=== PATIENT | male | born 1960 ===

== ENCOUNTER 2017-04-02 09:56 | Emergency (ER) | payer MEDICARE ==
[2017-04-02 10:04] VITALS: BP 150/82; PULSE 67; RESP 18; TEMP 97.8; O2SAT 98
--- NOTE | 2017-04-02 10:33 | C.PDOC ---
History Of Present Illness 56 year old male with a history of asthma and HIV presents to the ED with complaints of sore throat and cough for two days. Patient uses pump BID normally and denies aggravation of asthma symptoms. His viral load is undetected and CD4 is 850. Patient denies smoking, sick contacts, fever, runny nose, chest pain, shortness of breath, or associated symptoms. SORE THROAT, COUGH X 2 DAYS. NO FEVER, RUNNY NOSE. HO ASTHMA, USES PUMP BID NORMALLY BUT DENIES WORSE THAN USUAL ASTHMA. NO CP, SOB OTHER ASSOC SX. NO SMOKE , SICK CONTACTS VL UNDETECT CD4 850 EXAM +PHARYNGEAL ERYTHEMA NO EXUDATE, SWELL. MMM NO DROOL NO CERV NODES SUPPLE CTA B/L NO W/R/R NO RETRACTIONS Time Seen by Provider: 04/02/17 10:18 Chief Complaint (Nursing): Cough, Cold, Congestion History Per: Patient History/Exam Limitations: no limitations Onset/Duration Of Symptoms: Days (2 days ) Current Symptoms Are (Timing): Still Present Sick Contacts (Context): None Associated Symptoms: Sore Throat, Cough. denies: Fever, Chills, Nausea, Vomiting Recent travel outside of the [place]: No Past Medical History Reviewed: Historical Data, Nursing Documentation, Vital Signs Vital Signs: Last Vital Signs Temp 97.8 F 04/02/17 10:04 Pulse 67 04/02/17 10:04 Resp 18 04/02/17 10:04 BP 150/82 04/02/17 10:04 Pulse Ox 98 04/02/17 10:35 - Medical History PMH: Asthma, HIV Family History: States: Unknown Family Hx - Social History Hx Alcohol Use: Yes Hx Substance Use: No Review Of Systems Constitutional: Negative for: Fever, Chills ENT: Positive for: Other (sore throat ) Cardiovascular: Negative for: Chest Pain, Palpitations Respiratory: Positive for: Cough. Negative for: Shortness of Breath Gastrointestinal: Negative for: Nausea, Vomiting Physical Exam - Physical Exam Appears: Non-toxic, No Acute Distress Skin: Warm, Dry Head: Atraumatic Eye(s): bilateral: Normal Inspection Oral Mucosa: Moist Throat: Erythema (pharygeal erythema ), No Exudate, No Drooling, Other (No swelling ) Neck: Supple, Other (No cervical nodes ) Respiratory: Normal Breath Sounds (clear to auscultation bilaterally ), No Accessory Muscle Use, No Rales, No Rhonchi, No Wheezing ED Course And Treatment O2 Sat by Pulse Oximetry: 98 (room air ) Pulse Ox Interpretation: Normal - Radiology CXR: Interpreted by Me CXR Interpretation: Yes: No Acute Disease Progress Note: CXR was ordered. Disposition Counseled Patient/Family Regarding: Studies Performed, Diagnosis, Need For Followup, Rx Given - Disposition Referrals: [facility] [Outside] [facility] [Outside] Disposition: HOME/ ROUTINE Disposition Time: 10:32 Condition: GOOD Prescriptions: Azithromycin 250 mg PO DAILY #6 tab Benzonatate [Tessalon Perles] 200 mg PO TID PRN #15 sgl PRN Reason: Cough Ibuprofen [Motrin] 600 mg PO Q6 #30 tab predniSONE [Prednisone] 60 mg PO DAILY #15 tab Instructions: Acute Bronchitis (ED) Forms: [employer] (Bulgarian) - Clinical Impression Clinical Impression: Bronchitis, Upper respiratory infection - Scribe Statement The provider has reviewed the documentation as recorded by the Scribe Mari Martinez All medical record entries made by the Scribe were at my direction and personally dictated by me. I have reviewed the chart and agree that the record accurately reflects my personal performance of the history, physical exam, medical decision making, and the department course for this patient. I have also personally directed, reviewed, and agree with the discharge instructions and disposition.
--- NOTE | 2017-04-02 10:37 | RAD ---
HISTORY: COUGH COMPARISON: No prior. TECHNIQUE: Chest PA and lateral FINDINGS: LUNGS: No active pulmonary disease. PLEURA: No significant pleural effusion identified. No pneumothorax apparent. CARDIOVASCULAR: Normal. OSSEOUS STRUCTURES: No significant abnormalities. VISUALIZED UPPER ABDOMEN: Normal. OTHER FINDINGS: None. IMPRESSION: No active disease.
== END 2017-04-02 10:43 | disposition home or self-care (01) ==
LOC: C.ER 09:56
DX: J40 Bronchitis, not specified as acute or chronic (principal); J06.9 Acute upper respiratory infection, unspecified